=== PATIENT | male | born 1985 | race Caucasian/White ===

== ENCOUNTER 2017-07-26 09:45 | Emergency (ER) | payer OTHER ==
[~2017-07-26] VITALS: Ht 160 cm; Wt 81.7 kg
[~2017-07-26 09:45] MED LIST: ACETAMINOPHEN-1 EAC1 PO; APAP500 PO; FLEXERIL PO; HYDROCODON-ACE1 EAC7 PO; HYDROCODONE-AP1 EAC6 PO; IBUPROFEN 800800 M1 PO; IBUPROFEN 800800 MG PO; MOBIC7.5 MG PO; NAPROSYN500 M1 PO; NAPROSYN500 MG PO; NOHOMEMEDICATIONS; NORCO 5-325 TA1 EAC1 PO; NORCO 5-325 TA1 EACH PO; OXYCODON-ACETA1 EAC1 PO; PENICILLIN V P500 MG PO; PERCOCET 5-3251 EACH PO
[2017-07-26 09:49] VITALS: BP 137/93
[2017-07-26] MEDS ORDERED: NORCO 5-325 TA1 EACH PO (10:01)
[2017-07-26] MEDS ORDERED: FLEXERIL PO (10:01)
[2017-07-26] MEDS ORDERED: IBUPROFEN 600600 M1 PO (10:01)
== END 2017-07-26 10:24 | disposition home or self-care (01) ==
LOC: M.ERS 09:45
DX: M26.621 Arthralgia of right temporomandibular joint (principal); F17.210 Nicotine dependence, cigarettes, uncomplicated; F10.99 Alcohol use, unspecified with unspecified alcohol-induced disorder

== ENCOUNTER 2017-08-22 21:12 | Emergency (ER) | payer OTHER ==
[~2017-08-22] VITALS: Ht 160 cm; Wt 81.7 kg
[~2017-08-22 21:12] MED LIST changes: +IBUPROFEN 600600 M1 PO
[2017-08-22 21:20] VITALS: BP 120/87
[2017-08-22] MEDS ORDERED: TRAMADOL 50 MG50 MG PO (21:32)
[2017-08-22] MEDS ORDERED: AMOXICILLIN 50500 MG PO (21:32)
[2017-08-22] MEDS ORDERED: IBUPROFEN 600600 M1 PO (21:32)
== END 2017-08-22 21:42 | disposition home or self-care (01) ==
LOC: M.ERS 21:12
DX: K02.9 Dental caries, unspecified (principal); F17.210 Nicotine dependence, cigarettes, uncomplicated

== ENCOUNTER 2017-11-13 17:01 | Emergency (ER) | payer OTHER ==
[~2017-11-13] VITALS: Ht 160 cm; Wt 79.4 kg
[~2017-11-13 17:01] MED LIST changes: +AMOXICILLIN 50500 MG PO; +TRAMADOL 50 MG50 MG PO
[2017-11-13] MEDS ORDERED: TYLENOL EXTRA500 MG PO (17:25)
[2017-11-13] MEDS ORDERED: NAPROSYN500 MG PO (18:07)
[2017-11-13 18:16] VITALS: BP 140/85
== END 2017-11-13 18:16 | disposition home or self-care (01) ==
LOC: M.ERS 17:01
DX: M25.551 Pain in right hip (principal); F17.210 Nicotine dependence, cigarettes, uncomplicated

== ENCOUNTER 2018-01-18 05:17 | Emergency (ER) | payer OTHER ==
[~2018-01-18] VITALS: Ht 160 cm; Wt 79.4 kg
[~2018-01-18 05:17] MED LIST changes: +TYLENOL EXTRA500 MG PO
[2018-01-18 05:23] VITALS: BP 152/98
[2018-01-18] MEDS ORDERED: PENICILLIN VK250 MG PO (05:50)
[2018-01-18] MEDS ORDERED: ACETAMINOPHEN-1 EAC1 PO (05:50)
== END 2018-01-18 06:01 | disposition home or self-care (01) ==
LOC: M.ERS 05:17
DX: K08.89 Other specified disorders of teeth and supporting structures (principal); F17.210 Nicotine dependence, cigarettes, uncomplicated

== ENCOUNTER 2018-05-23 15:26 | Emergency (ER) | payer OTHER ==
[~2018-05-23] VITALS: Ht 160 cm; Wt 77.1 kg
[~2018-05-23 15:26] MED LIST changes: +PENICILLIN VK250 MG PO
[2018-05-23] MEDS ORDERED: IBUPROFEN 600600 M1 PO (15:36)
[2018-05-23] MEDS ORDERED: ACETAMINOPHEN-1 EAC1 PO (15:36)
[2018-05-23] MEDS ORDERED: AMOXICILLIN 50500 MG PO (15:36)
[2018-05-23 15:59] VITALS: BP 135/85
== END 2018-05-23 16:00 | disposition home or self-care (01) ==
LOC: M.ERS 15:26
DX: K08.89 Other specified disorders of teeth and supporting structures (principal); F17.210 Nicotine dependence, cigarettes, uncomplicated

== ENCOUNTER 2018-10-01 17:24 | Emergency (ER) | payer OTHER ==
[~2018-10-01] VITALS: Ht 167.6 cm; Wt 81.7 kg
[2018-10-01] MEDS ORDERED: AMERICAINE28 GM TOP (17:53)
[2018-10-01] MEDS ORDERED: ACETAMINOPHEN-1 EAC1 PO (17:53)
[2018-10-01 17:54] VITALS: BP 133/90
== END 2018-10-01 18:04 | disposition home or self-care (01) ==
LOC: M.ERS 17:24
DX: K64.9 Unspecified hemorrhoids (principal); F17.210 Nicotine dependence, cigarettes, uncomplicated